=== PATIENT | male | born 1960 | race African-American/Black ===

== ENCOUNTER 2018-08-31 11:17 | Emergency (ER) | payer BC, OTHER ==
[2018-08-31 11:24] VITALS: BP 126/84; PULSE 96; TEMP 98.2; BMI 23.7
[2018-08-31] MEDS ORDERED: NAPROXEN 500 MG TABLET (FP) PO ONE (11:56)
[2018-08-31] MEDS ORDERED: NAPROXEN 500 MG TABLET (FP) ONE (11:56)
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
== END 2018-08-31 12:16 | disposition home or self-care (01) ==
LOC: JERFT 11:17
DX: M54.5 Low back pain (principal); G89.29 Other chronic pain
CPT/HCPCS: 99282-25

== ENCOUNTER 2020-11-09 15:09 | Emergency (ER) | payer BC, OTHER ==
[2020-11-09 16:06] VITALS: BP 152/107; PULSE 76; TEMP 98.1; BMI 23.5
[2020-11-09] MEDS ORDERED: KETOROLAC TROMETHAMINE 30 MG/1 ML VIAL IM ONE (16:43)
[2020-11-09] MEDS ORDERED: METHOCARBAMOL 500 MG TABLET PO ONE (16:43)
[2020-11-09] MEDS ORDERED: LIDOCAINE 5% TOPICAL PATCH TP ONE (16:43)
[2020-11-09] MEDS ORDERED: LIDOCAINE 5% TOPICAL PATCH ONE (16:45)
[2020-11-09] MEDS ORDERED: METHOCARBAMOL 500 MG TABLET ONE (16:46)
[2020-11-09] MEDS ORDERED: KETOROLAC TROMETHAMINE 30 MG/1 ML VIAL ONE (16:46)
== END 2020-11-09 17:48 | disposition home or self-care (01) ==
LOC: JERFT 15:09
PROC: 3E0233Z Introduction of Anti-inflammatory into Muscle, Percutaneous Approach (ICD-10-PCS; principal; 2020-11-09)
DX: M54.5 Low back pain (principal)
CPT/HCPCS: 99283-25

== ENCOUNTER 2020-12-16 08:28 | Emergency (ER) | payer OTHER, BC ==
[2020-12-16 08:40] VITALS: BP 147/88; PULSE 88; TEMP 98.5; BMI 23.5
[2020-12-16] MEDS ORDERED: KETOROLAC TROMETHAMINE 30 MG/1 ML VIAL IM ONE (09:32)
[2020-12-16] MEDS ORDERED: KETOROLAC TROMETHAMINE 30 MG/1 ML VIAL ONE (09:44)
[2020-12-16 10:41] LABS: PH,URINE 5.5 (5.0-8.0); URINE APPEARANCE CLEAR; URINE BILIRUBIN NEGATIVE (NEGATIVE); URINE COLOR YELLOW; URINE GLUCOSE (UA) NEGATIVE (NEGATIVE); URINE KETONE NEGATIVE (NEGATIVE); URINE LEUK ESTERASE NEGATIVE (NEGATIVE); URINE NITRITE NEGATIVE (NEGATIVE); URINE PROTEIN NEGATIVE (NEGATIVE)
== END 2020-12-16 11:00 | disposition home or self-care (01) ==
LOC: JERFT 08:28
PROC: 3E0233Z Introduction of Anti-inflammatory into Muscle, Percutaneous Approach (ICD-10-PCS; principal; 2020-12-16)
DX: M54.50 Low back pain, unspecified (principal)
CPT/HCPCS: 81003; 87086; 99284-25